=== PATIENT | female | born 1995 | race American Indian/Alaskan Native ===

== ENCOUNTER 2017-05-09 20:23 | Emergency (ER) | payer MEDICAID ==
[2017-05-09 20:46] VITALS: BP 111/71
[2017-05-09 21:09] LABS: Basophils % (Auto) 0.3 % (0.0-1.8); Eosinophils % (Auto) 0.2 % (0.0-4.3); Hemoglobin 12.7 gm/dl (10.1-14.3); Mean Corpuscular HGB Conc 34 % (30-34); Mean Corpuscular Hemoglobin 31 pg (28-32); Mean Corpuscular Volume 92 fl (79-97); Platelet Count 232 K/mm3 (140-440); Red Blood Count 4.12 M/mm3 (3.65-5.03); Red Cell Distribution Width 13.8 % (13.2-15.2); White Blood Count 10.8 K/mm3 (4.5-11.0)
[2017-05-09 21:28] LABS: Anion Gap 18 mmol/L; BUN/Creatinine Ratio 17; Blood Urea Nitrogen 12 mg/dL (7-17); Carbon Dioxide 23 mmol/L (22-30); Chloride 101.2 mmol/L (98-107); Glucose 89 mg/dL (65-100); Potassium 3.4 mmol/L (3.6-5.0); Sodium 139 mmol/L (137-145)
== END 2017-05-09 21:58 | disposition left against medical advice (07) ==
LOC: ED 20:23
DX: F41.9 Anxiety disorder, unspecified (principal); Z53.21 Procedure and treatment not carried out due to patient leaving prior to being seen by health care provider
CPT/HCPCS: 36415; 80048; 84703; 85025; G0480; 80320

== ENCOUNTER 2017-08-10 10:57 | Emergency (ER) | payer MEDICAID, OTHER ==
[2017-08-10 11:04] VITALS: BP 108/77
[2017-08-10 11:26] LABS: HCG Qualitative,Urine Negative (Negative)
[2017-08-10 11:29] LABS: Bilirubin,Urine NEG (Negative); Blood,Urine NEG (Negative); Color,Urine Yellow (Yellow); Mucus,Urine 2+ /HPF; Protein,Urine <15 mg/dL mg/dL (Negative)
--- NOTE | 2017-08-10 12:25 | Emergency Department Report ---
ED Female HPI - General Chief complaint: Urogenital-Female Stated complaint: VAG PAIN/DISCHARGE Time Seen by Provider: 08/10/17 12:07 Source: patient Mode of arrival: Ambulatory Limitations: No Limitations - History of Present Illness Initial comments: Patient is a 21-year-old [place]ian female who is presenting with vaginal discharge and lower abdominal discomfort past 2 weeks. Patient states that her partner who she has had a protected sex with was diagnosed with Trichomonas. Patient states that she has slight discomfort when she urinates. Patient states she has a heavy amount of yellowish discharge. As well as odor. Patient denies any nausea vomiting diarrhea fevers at this time. MD Complaint: vaginal discharge, pelvic pain -: week(s) (2) - Related Data Home Medications Medication Instructions Recorded Confirmed Last Taken Vit,Calc76/Iron/Folic 02/28/14 02/28/14 Unknown [Prenatabs Rx Tablet] Allergies Allergy/AdvReac Type Severity Reaction Status Date / Time No Known Allergies Allergy Verified 05/09/17 20:42 ED Review of Systems ROS: Stated complaint: VAG PAIN/DISCHARGE Other details as noted in HPI Comment: All other systems reviewed and negative ED Past Medical Hx - Past Medical History Hx Hypertension: No Hx Congestive Heart Failure: No Hx Diabetes: No Hx Deep Vein Thrombosis: No Hx Renal Disease: No Hx Sickle Cell Disease: No Hx Seizures: No Hx Psychiatric Treatment: Yes Hx Asthma: No Hx COPD: No Hx HIV: No - Social History Smoking Status: Never Smoker Substance Use Type: None - Medications Home Medications: Home Medications Medication Instructions Recorded Confirmed Last Taken Type Vit,Calc76/Iron/Folic 02/28/14 02/28/14 Unknown History [Prenatabs Rx Tablet] ED Physical Exam - General Limitations: No Limitations General appearance: alert, in no apparent distress - Head Head exam: Present: atraumatic, normocephalic - Eye Eye exam: Present: normal appearance - ENT ENT exam: Present: mucous membranes moist - Neck Neck exam: Present: normal inspection - Respiratory Respiratory exam: Present: normal lung sounds bilaterally. Absent: respiratory distress - Cardiovascular Cardiovascular Exam: Present: regular rate, normal rhythm. Absent: systolic murmur, diastolic murmur, rubs, gallop - GI/Abdominal GI/Abdominal exam: Present: soft, normal bowel sounds - Rectal Rectal exam: Present: deferred - External exam: Present: other (patient is deferred a pelvic exam at this time) - Extremities Exam Extremities exam: Present: normal inspection - Back Exam Back exam: Present: normal inspection - Neurological Exam Neurological exam: Present: alert, oriented X3 - Psychiatric Psychiatric exam: Present: normal affect, normal mood - Skin Skin exam: Present: warm, dry, intact, normal color. Absent: rash ED Course Vital Signs 08/10/17 11:00 Temperature 98.5 F Pulse Rate 82 Respiratory 16 Rate Blood Pressure 108/77 O2 Sat by Pulse 100 Oximetry ED Medical Decision Making - Medical Decision Making Patient will be empirically treated for STDs here in the emergency department. Patient has deferred a pelvic exam at this time. Critical care attestation.: If time is entered above; I have spent that time in minutes in the direct care of this critically ill patient, excluding procedure time. ED Disposition Clinical Impression: Cervicitis Disposition: DC-01 TO HOME OR SELFCARE Is pt being admited?: No Does the pt Need Aspirin: No Condition: Stable Instructions: Cervicitis (ED) Referrals: PRIMARY CARE, [Primary Care Provider] - 3-5 Days Forms: STI Treatment and Prevention
[2017-08-10] MEDS ORDERED: ROCEPHIN IM ONE (12:26)
[2017-08-10] MEDS ORDERED: XYLOCAINE 1% MPF 5 mL INFILTRATI ONE (12:26)
[2017-08-10] MEDS ORDERED: FLAGYL PO ONE (12:26)
[2017-08-10] MEDS ORDERED: ZITHROMAX PO ONE (12:26)
== END 2017-08-10 12:50 | disposition home or self-care (01) ==
LOC: ED 10:57
DX: N72 Inflammatory disease of cervix uteri (principal)
CPT/HCPCS: 81001; 81025; 96372; 99283; J0696

== ENCOUNTER 2018-12-17 15:59 | Emergency (ER) | payer MEDICAID, OTHER ==
--- NOTE | 2018-12-17 16:22 | Event Note ---
Date: 12/17/18 23 y.o aaf presents to ER with suprapubic discomfort, white cottage cheese vaginal discharge, accompanied by swollen vaginal hairbump. Had unprotected sex and is worried about an STD. The initial assessment/diagnostic orders/clinical plan/treatment(s) is/are subject to change based on patient's health status,clinical progression and re-a ssessment by fellow clinical providers in the ED. Further treatment and workup at subsequent clinical providers discretion. Patient/guardian urged not to elope from the ED as their condition may be serious if not clinically assessed and managed.
[2018-12-17 16:53] LABS: Bilirubin,Urine NEG (Negative); Blood,Urine NEG (Negative); Color,Urine Yellow (Yellow); Mucus,Urine FEW /HPF; Protein,Urine <15 mg/dL mg/dL (Negative); Urobilinogen,Urine < 2.0 mg/dL (<2.0)
[2018-12-17 16:56] LABS: HCG Qualitative,Urine Negative (Negative)
--- NOTE | 2018-12-17 17:18 | Emergency Department Report ---
ED Female HPI - General Chief complaint: Abdominal Pain Stated complaint: PELVIC PAIN/STD CHECK Time Seen by Provider: 12/17/18 16:41 Source: patient Mode of arrival: Ambulatory Limitations: Other - History of Present Illness Initial comments: This is a 23 year-old female who presents to the emergency room with pelvic pain and vaginal discharge for 2 weeks. Patient reports accompany external vaginal pruritus. Her last menstrual period was 11/23/2018. He shouldn't have not taken anything for symptomatic relief. She denies urinary frequency, urgency, dysuria, nausea, vomiting, or back pain. MD Complaint: vaginal discharge, possible STD Onset/Timin -: week(s) Location: labia, suprapubic Radiation: non-radiating Severity: moderate Severity scale (0 -10): 4 Quality: cramping Consistency: intermittent Improves with: none Worsens with: none Are you Now?: No Last Menstrual Period: 11/23/18 EDC: 08/30/19 Associated Symptoms: vaginal discharge. denies: vaginal bleeding, abdominal pain, nausea/vomiting, fever/chills, dysuria, hematuria, rash, seizure - Related Data Sexually active: Yes Home Medications Medication Instructions Recorded Confirmed Last Taken Vit,Calc76/Iron/Folic 02/28/14 02/28/14 Unknown [Prenatabs Rx Tablet] Previous Rx's Medication Instructions Recorded Last Taken Type metroNIDAZOLE [Flagyl TAB] 500 mg PO Q12HR #14 tab 12/17/18 Unknown Rx Allergies Allergy/AdvReac Type Severity Reaction Status Date / Time No Known Allergies Allergy Verified 12/17/18 16:20 ED Review of Systems ROS: Stated complaint: PELVIC PAIN/STD CHECK Other details as noted in HPI Constitutional: denies: chills, fever Respiratory: denies: cough, shortness of breath, wheezing Cardiovascular: denies: chest pain, palpitations Gastrointestinal: abdominal pain. denies: nausea, diarrhea Genitourinary: discharge. denies: urgency, dysuria Musculoskeletal: denies: back pain, joint swelling, arthralgia Neurological: denies: headache, weakness, paresthesias Psychiatric: denies: anxiety, depression ED Past Medical Hx - Past Medical History Previous Medical History?: Yes Hx Hypertension: No Hx Congestive Heart Failure: No Hx Diabetes: No Hx Deep Vein Thrombosis: No Hx Renal Disease: No Hx Sickle Cell Disease: No Hx Seizures: No Hx Psychiatric Treatment: Yes Hx Asthma: No Hx COPD: No Hx HIV: No - Surgical History Past Surgical History?: No - Social History Smoking Status: Never Smoker Substance Use Type: None - Medications Home Medications: Home Medications Medication Instructions Recorded Confirmed Last Taken Type Vit,Calc76/Iron/Folic 02/28/14 02/28/14 Unknown History [Prenatabs Rx Tablet] metroNIDAZOLE [Flagyl TAB] 500 mg PO Q12HR #14 tab 12/17/18 Unknown Rx ED Physical Exam - General Limitations: Other General appearance: alert, in no apparent distress - Respiratory Respiratory exam: Present: normal lung sounds bilaterally. Absent: respiratory distress - Cardiovascular Cardiovascular Exam: Present: regular rate, normal rhythm. Absent: systolic murmur, diastolic murmur, rubs, gallop - GI/Abdominal GI/Abdominal exam: Present: soft, normal bowel sounds. Absent: distended, tenderness, guarding, rebound, rigid, organomegaly - External exam: Present: normal external exam Speculum exam: Present: vaginal discharge (malodorous yellowish white frothy discharge). Absent: cervical discharge, vaginal bleeding, foreign body, tissue, laceration Bi-manual exam: Present: normal bi-manual exam - Back Exam Back exam: Absent: CVA tenderness (R), CVA tenderness (L) - Neurological Exam Neurological exam: Present: alert, oriented X3 - Psychiatric Psychiatric exam: Present: normal affect, normal mood - Skin Skin exam: Present: warm, dry, intact, normal color. Absent: rash ED Course Vital Signs 12/17/18 16:18 Temperature 98.6 F Pulse Rate 87 Respiratory 13 Rate Blood Pressure 113/46 O2 Sat by Pulse 100 Oximetry ED Medical Decision Making - Lab Data Lab Results 12/17/18 Range/Units 16:37 Urine Color Yellow (Yellow) Urine Turbidity Clear (Clear) Urine pH 7.0 (5.0-7.0) Ur Specific [place] 1.016 (1.003-1.030) Urine Protein <15 mg/dl (Negative) mg/dL Urine Glucose (UA) Neg (Negative) mg/dL Urine Ketones Neg (Negative) mg/dL Urine Blood Neg (Negative) Urine Nitrite Neg (Negative) Urine Bilirubin Neg (Negative) Urine Urobilinogen < 2.0 (<2.0) mg/dL Ur Leukocyte Esterase Tr (Negative) Urine WBC (Auto) 2.0 (0.0-6.0) /HPF Urine RBC (Auto) 2.0 (0.0-6.0) /HPF U Epithel Cells (Auto) 6.0 (0-13.0) /HPF Urine Mucus Few /HPF Urine HCG, Qual Negative (Negative) - Medical Decision Making Patient was examined by me. Vitals are stable and in no acute distress. During pelvic exam patient reports her boyfriend was caught cheating on her ankle signed a possible STD exposure. Obtain wet prep, gonorrhea and chlamydia, urinalysis, and test. Urinalysis and test is unremarkable. Wet prep positive for clue cells and poly cells. Negative yeast and Trichomonas. Empirically treated with Rocephin 250 mg IM and azithromycin 1 g by mouth. Start metronidazole for bacterial vaginitis. Discharged home in stable condition. Discussed prevention options. F/U with PCP or Health Department. Critical care attestation.: If time is entered above; I have spent that time in minutes in the direct care of this critically ill patient, excluding procedure time. ED Disposition Clinical Impression: Vaginal discharge, Pelvic pain, Exposure to STD, Acute vaginitis Disposition: DC-01 TO HOME OR SELFCARE Is pt being admited?: No Does the pt Need Aspirin: No Condition: Stable Instructions: Abdominal Pain (ED), Safe Sex (ED), Sexually Transmitted Diseases (ED) Additional Instructions: Complete full course of antibiotics as prescribed. Avoid drinking alcohol while taking antibiotics. Prescriptions: metroNIDAZOLE [Flagyl TAB] 500 mg PO Q12HR #14 tab Referrals: IVETTE PEREZ MD [Primary Care Provider] - 3-5 Days [facility] [Provider Group] - 3-5 Days [facility] [Provider Group] - 3-5 Days [facility] [Provider Group] - 3-5 Days Forms: Work/School Release Form(ED) Time of Disposition: 18:47
[2018-12-17] MEDS ORDERED: ROCEPHIN IM ONE (18:48)
[2018-12-17] MEDS ORDERED: XYLOCAINE 1% MPF 5 mL INFILTRATI ONE (18:48)
[2018-12-17] MEDS ORDERED: ZITHROMAX PO ONE (18:48)
[2018-12-17 19:23] VITALS: BP 122/80
== END 2018-12-17 19:23 | disposition home or self-care (01) ==
LOC: ED 15:59
DX: N76.0 Acute vaginitis (principal); Z20.2 Contact with and (suspected) exposure to infections with a predominantly sexual mode of transmission
CPT/HCPCS: 81001; 81025; 87210; 87591; 96372; 99284; J0696

== ENCOUNTER 2020-02-09 19:16 | Outpatient (CLI) | payer MEDICAID ==
[2020-02-09 20:15] VITALS: BP 106/59
== END 2020-02-09 20:45 | disposition left against medical advice (07) ==
LOC: TRG 19:16 → APU 19:42 → TRG 20:45
PROVIDERS: ATTEND Obstetrics & Gynecology
DX: O47.03 False labor before 37 completed weeks of gestation, third trimester (principal); Z3A.34 34 weeks gestation of pregnancy
CPT/HCPCS: 59025

== ENCOUNTER 2020-02-27 10:35 | Outpatient (CLI) | payer MEDICAID ==
[2020-02-27 12:06] VITALS: BP 106/65
[2020-02-27] MEDS ORDERED: ACETAMINOPHEN 500 MG TAB PO ONE (12:20)
--- NOTE | 2020-02-27 12:58 | Event Note ---
Date: 02/27/20 (r/o SROM) Pt is 24 y.o. @ 36.6, limited [facility], here for r/o SROM. States that she thinks her water broke this AM at 0730. . It was clear fluid and has been running down her leg since then. Per the triage nurse, pt was nitrazine positive. A speculum exam was performed, no pooling noted. When questioned further, pt states that she had sexual intercourse last night. Explained that sexual activity can cause nitrazine test to turn positive. Cervical exam /-3. Category 1 monitor strip. Contractions q 2-4 minutes apart. Will order an ultrasound for ALBERTO and BPP. Also ordered IV fluids and Extra Strength Tylenol for pain. Will re- evaluate cervical exam, pain, and monitor strip in 2 hours and develop a plan after re-evaluation. Discussed this with patient and she verbalized understanding.
[2020-02-27] MEDS ORDERED: LACTATED RINGERS 1,000 ML IV SCH (13:00)
--- NOTE | 2020-02-27 16:42 | Event Note ---
Date: 02/27/20 (Pt feeling better) Pt is feeling a little better. Still having some irregular ctxs. Cervical exam unchanged. Pt given strict labor precautions. Also discussed importance of care and need for follow up this week in the office. Pt verbalized understanding of these instructions. She was discharged home in good condition , not in labor, and no SROM. monitor strip remained category 1 throughout triage visit.
--- NOTE | 2020-02-27 17:37 | Ultrasound Report ---
US OB BPP wo non-stress, US OB limited INDICATION / CLINICAL INFORMATION: well being. COMPARISON: None available. FINDINGS: A single live fetus is seen in cephalic presentation. heart rate is 142. ALBERTO is normal at 10.4. BPP is 8/8 IMPRESSION: Single live fetus in cephalic presentation with heart rate 142 and normal ALBERTO. BPP is 8/8 Signer Name: Michael Thornton MD FACR Signed: 02/27/2020 5:33 PM Workstation Name: [id number]
== END 2020-02-27 17:03 | disposition home or self-care (01) ==
LOC: TRG 10:35 → APU 10:37 → LD 11:48 → TRG 17:03
PROVIDERS: ATTEND Obstetrics & Gynecology
DX: O42.913 Preterm premature rupture of membranes, unspecified as to length of time between rupture and onset of labor, third trimester (principal); Z3A.36 36 weeks gestation of pregnancy
CPT/HCPCS: 76815; 76819; J7120

== ENCOUNTER 2020-03-04 12:18 | Outpatient (CLI) | payer MEDICAID ==
[2020-03-04 13:50] VITALS: BP 108/64
== END 2020-03-04 14:09 | disposition home or self-care (01) ==
LOC: TRG 12:18 → APU 12:18 → TRG 14:09
PROVIDERS: ATTEND Obstetrics & Gynecology
DX: O47.1 False labor at or after 37 completed weeks of gestation (principal); Z3A.37 37 weeks gestation of pregnancy
CPT/HCPCS: 59025

== ENCOUNTER 2020-03-10 06:11 | Inpatient (IN) | payer MEDICAID ==
[2020-03-10] MEDS ORDERED: LIDOCAINE (2%) 20 MG/1 ML VIAL 20 ML MDV INFILTRATI NR (07:10)
[2020-03-10] MEDS ORDERED: ePHEDrine SULFATE 50 MG/1 ML INJ IV PRN (07:10)
[2020-03-10] MEDS ORDERED: AMPICILLIN/NS 2 GM/100 ML 2 GM/100 ML BAG IV ONE (07:10)
[2020-03-10] MEDS ORDERED: TERBUTALINE 1 MG/1 ML INJ SUB-Q PRN (07:10)
[2020-03-10] MEDS ORDERED: NalbUPHINE 10 MG/1 ML INJ IV PRN ×2 (07:10→10:00)
--- NOTE | 2020-03-10 07:17 | History and Physical Report ---
History of Present Illness Date of examination: 03/10/20 Chief complaint: SROM around 0600, contractions History of present illness: EDC Confirmation: 03/20/2020 Past History : 5 Term Births: 2 Premature Births: 0 Living Children: 2 Para: 2 Mult. Births: 0 Prev : 0 Prev. attempt? 0 Aborta: 2 Elect. Ab: 2 Spont. Ab: 0 Ectopics: 0 # 1 Delivery date: 2012 Delivery type: EAB Infant Sex: - # 2 Delivery date: 10/13/2014 Weeks Gestation: 39 labor: no Delivery type: Hours of labor: 26 Anesthesia type: epidural Delivery location: [place] Infant Sex: Female weight: 8-1 Name: Dutch John # 3 Delivery date: 04/24/2016 Weeks Gestation: 39 Delivery type: Vaginal Anesthesia type: epidural Delivery location: [facility] Sex: female weight: 6.56 Name: Lise Comments: none # 4 Delivery date: 01/2019 Delivery type: EAB Risk Factors: Smoked Tobacco Use: Never smoker Smokeless Tobacco Use: Never Passive smoke exposure: no Drug use: no HIV high-risk behavior: no Caffeine use: 0 drinks per day Alcohol use: no Exercise: yes Times per week: 3 Type of Exercise: walking Seatbelt use: 100 % Past Medical History: Reviewed history from 11/14/2015 and no changes required: Pyleonephritis Past Surgical History: Reviewed history from 11/14/2015 and no changes required: EAB D&C: (2012 & 2018) Past Medical History 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 Infection History Hx of STD: chlamydia HIV Risk Eval: no Hepatitis B Risk Eval: low risk Personal hx. of genital herpes: no Partner hx. of genital herpes: no Rash, Viral, or Febrile illness since last LMP? no Varicella/Chicken Pox Status: Immunized Genetic History Congenital Heart Defect: Mom: no Dad: no Dena Disease: Mom: no Dad: no Thalassemia Mom: no Dad: no Neural Tube Defect Mom: no Dad: no Down's Syndrome Mom: no Dad: no Gene-Sachs Mom: no Dad: no Sickle Cell Disease/Trait Mom: no Dad: no Hemophilia Mom: no Dad: no Muscular Dystrophy Mom: no Dad: no Cystic Fibrosis Mom: no Dad: no Vita Chorea Mom: no Dad: no Mental Retardation Mom: no Dad: no Fragile X Mom: no Dad: no Other Genetic/Chromosomal Disorder Mom: no Dad: no Child w/other defect Mom: no Dad: no Comments/Counseling: Oldest daughter is autistic Enviromental Exposures Xray Exposure: no Medication, drug, or alcohol use since LMP: no Chemical/Other Exposure: no Exposure to Cat Liter: no Hx of Parvovirus (Fifth Disease): no Occupational Exposure to Children: none Active Medications (reviewed today): PLUS 27-1 MG ORAL TABLET ( VIT-FE FUMARATE-FA) 1 po Current Allergies (reviewed today): No known allergies Past History Past Medical History: other (see HPI) Past Surgical History: other (see HPI) 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 (treated during care), trichomonas (treated upon admission) - Obstetrical History Expected Date of Delivery: 03/20/20 Actual Gestation: 38 Week(s) 4 Day(s) : 5 Para: 2 Hx # Term Pregnancies: 2 Number of Pregnancies: 0 Spontaneous Abortions: 0 Induced : 2 Number of Living Children: 2 Medications and Allergies Allergies Allergy/AdvReac Type Severity Reaction Status Date / Time No Known Allergies Allergy Verified 12/17/18 16:20 Home Medications Medication Instructions Recorded Confirmed Last Taken Type Vit,Calc76/Iron/Folic 1 tab PO DAILY 02/28/14 02/27/20 03/09/20 09:00 History [Prenatabs Rx Tablet] Active Meds: Active Medications Ephedrine Sulfate (Ephedrine Sulfate) 10 mg IV Q2M PRN PRN Reason: Hypotension Oxytocin/Sodium Chloride (Pitocin/Ns 30 Unit/500ml) 30 units in 500 mls @ 2 mls/hr IV TITR WILMAN; Protocol Lactated Ringer's (Lactated Ringers) 1,000 mls @ 125 mls/hr IV DIRECT WILMAN Lidocaine (Xylocaine 2%) 20 ml INFILTRATI ONCE ONE Stop: 03/10/20 07:11 Mineral Oil (Mineral Oil) 30 ml PO QHS PRN PRN Reason: Constipation Terbutaline Sulfate (Brethine) 0.25 mg SUB-Q ONCE PRN PRN Reason: Hyperstimulation/Hypertonicity Review of Systems All systems: negative - Physical Exam Breasts: Positive: normal Cardiovascular: Regular rate Lungs: Positive: Normal air movement Abdomen: Positive: normal appearance, soft Genitourinary (Female): Positive: normal external genitalia, normal perenium Vulva: both: normal Vagina: Positive: normal moisture Anus/Rectum: Positive: normal perianal skin Extremities: Positive: normal - Obstetrical FHR: category 2 Uterine Contraction Monitor Mode: External Cervical Dilatation: 4.5 (per RN) Uterine Contraction Pattern: Regular Uterine Tone Measurement Phase: Contraction Uterine Contraction Intensity: Moderate Results Result Diagrams: 03/10/20 07:22 All other labs normal. Assessment and Plan 24y/o @ 38+4 weeks, admitted with SROM and labor. GBS +, trich + 03/01 with no evidence of treatment so treated upon admission. anticipate admission orders in EMR. - Patient Problems (1) 38 weeks gestation of Current Visit: Yes Status: Acute (2) GBS (group B Streptococcus carrier), +RV culture, currently Current Visit: Yes Status: Acute Plan to address problem: Ampicillin q4hrs until delivery (3) Active labor at term Current Visit: No Status: Acute
[2020-03-10] MEDS ORDERED: ONDANSETRON 4 MG/2 ML INJ IV PRN ×3 (07:30→15:39)
[2020-03-10] MEDS ORDERED: fentaNYL 100 MCG/2 ML INJ IV PRN (07:30)
[2020-03-10 07:55] LABS: Basophils % (Auto) 0.3 % (0.0-1.8); Eosinophils # (Auto) 0.1 K/mm3 (0.0-0.4); Eosinophils % (Auto) 0.6 % (0.0-4.3); Hematocrit 30.3 % (30.3-42.9); Hemoglobin 10.3 gm/dl (10.1-14.3); Lymphocytes # (Auto) 2.1 K/mm3 (1.2-5.4); Lymphocytes % (Auto) 20.9 % (13.4-35.0); Mean Corpuscular HGB Conc 34 % (30-34); Mean Corpuscular Volume 91 fl (79-97); Monocytes # (Auto) 0.7 K/mm3 (0.0-0.8); Monocytes % (Auto) 6.6 % (0.0-7.3); Platelet Count 183 K/mm3 (140-440); Red Blood Count 3.33 M/mm3 (3.65-5.03); Red Cell Distribution Width 14.2 % (13.2-15.2)
[2020-03-10] MEDS ORDERED: metroNIDAZOLE 500 MG TAB PO NR (08:00)
[2020-03-10] MEDS ORDERED: LACTATED RINGERS 1,000 ML IV SCH (08:00)
[2020-03-10] MEDS ORDERED: OXYTOCIN DRIP 30 UNITS/500 ML BAG IV SCH ×2 (08:00)
[2020-03-10] MEDS ORDERED: DEXMEDETOMIDINE 200 MCG/2 ML VIAL IV ONE (09:10)
--- NOTE | 2020-03-10 09:39 | Anesthesia Consultation ---
Anesthesia Consult and Med Hx Date of service: 03/10/20 - Airway Anesthetic Teeth Evaluation: Good ROM Head & Neck: Adequate Mental/Hyoid Distance: Adequate Mallampati Class: Class II Intubation Access Assessment: Good - Pulmonary Exam CTA: Yes - Cardiac Exam Cardiac Exam: RRR - Pre-Operative Health Status ASA Pre-Surgery Classification: ASA2 Proposed Anesthetic Plan: Epidural - Pulmonary Hx Smoking: No Hx Asthma: No COPD: No Hx Pneumonia: No Hx Sleep Apnea: No - Cardiovascular System Hx Hypertension: No - Central Nervous System Hx Seizures: No Hx Psychiatric Problems: No - Gastrointestinal Hx Gastroesophageal Reflux Disease: No - Endocrine Hx Renal Disease: No Hx End Stage Renal Disease: No Hx Hypothyroidism: No Hx Hyperthyroidism: No - Hematic Hx Anemia: No Hx Sickle Cell Disease: No - Other Systems Hx Alcohol Use: No Hx Substance Use: Yes (marijuana prior to LMP)
--- NOTE | 2020-03-10 09:40 | Progress Note ---
Labor Epidural - Labor Epidural Start Time: 09:15 Stop Time: 09:30 Performed by:: ZIA BRANDON ([facility]) Procedure: Patient is requesting a laboring epidural for laboring pain. Patient IDed, H&P reviewed, all questions and concerns were answered, and consent was signed. Timeout was performed at bedside. Patient in sitting position. Sterile prep and drape was performed. 3ml of 1% lidocaine skin wheal at L[3]- L [4]. 18- gauge Touhy epidural needle was advanced to loss of resistance with air technique. Negative CSF negative blood. Epidural catheter advanced to [12] centimeters. [-] Aspiration [-] test dose. Sterile dressing applied. Patient tolerated procedure.
[2020-03-10] MEDS ORDERED: NALOXONE 2 MG/2 ML INJ IV PRN (10:00)
[2020-03-10] MEDS ORDERED: fentaNYL-BUPIV 2 MCG/ML-0.125% 200 MCG/100 ML BAG EPIDURAL SCH (10:00)
[2020-03-10] MEDS ORDERED: diphenhydrAMINE 50 MG/ML VIAL IV PRN (10:00)
[2020-03-10] MEDS ORDERED: AMPICILLIN/NS 1 GM/50 ML 1 GM/50 ML BAG IV SCH (11:00)
--- NOTE | 2020-03-10 11:59 | Procedure Note ---
OB Delivery Note - Delivery Date of Delivery: 03/10/20 Dredging Inspector: JULIO JONAS (RISHI Ellis) Estimated blood loss: 200cc - Vaginal Delivery presentation: vertex Delivery position: OA Intrapartum events: none Delivery induction: none Delivery augmentation: pitocin Delivery monitor: external FHT, external uterine Route of delivery: Delivery placenta: spontaneous Delivery cord: 3 umbilical vessels Episiotomy: none Delivery laceration: none Anesthesia: epidural Delivery comments: of Live female delivered OA over a intact perineum. 6lbs8.3oz and APGARS 8/9no nuchal cord mouth bulb suctioned on mom's abdomen. Body delivered without difficulty. Cord clamp and cut after cessation. Cord blood obtain baby [id number]. Placenta delivered spontaneously and Intact. Pitocin IVFs Firm fundus, minimal bleeding. Placenta appears intact with a 3 vessel cord. Perineum and vagina inspected intact. EBL 200cc. Hemostasis. Patient tolerated well, no complications during . Mom and baby stable and recovering in LDR RISHI Ellis - B at 1 minute: 8 at 5 minutes: 9 Gender: Female (6lbs 8.3 oz Jen)
[2020-03-10] MEDS: IBUPROFEN 800 MG TAB PO PRN (15:05)
[2020-03-10] MEDS ORDERED: diphenhydrAMINE 25 MG CAP PO PRN (15:39)
[2020-03-10] MEDS ORDERED: BENZOCAINE/MENTHOL 20/0.5% TOP SPRAY 56 GM TP PRN (15:39)
[2020-03-10] MEDS ORDERED: WITCH HAZEL/ GLYCERIN PAD TP PRN (15:39)
[2020-03-10] MEDS ORDERED: LANOLIN/ZINC/DIMETHICONE (LANSINOH) 7 GM TP PRN (15:39)
[2020-03-10] MEDS ORDERED: PROMETHAZINE 25 MG TAB PO PRN (15:39)
[2020-03-10] MEDS: IBUPROFEN 600 MG TAB PO SCH (16:54)
--- NOTE | 2020-03-10 17:34 | Post Anesthesia Evaluation ---
- Post Anesthesia Evaluation Patient Participated: Yes Airway Patent: Yes Stable Respiratory Function: Yes Nausea/Vomiting: No Temp > 96.8F: Yes Pain Manageable: Yes Adequeate Hydration: Yes Anesthesia Complications: No Block Receding Appropriately: Yes Patient on Ventilator: No
[2020-03-10] MEDS ORDERED: ACETAMINOPHEN 500 MG TAB PO PRN (21:48)
[2020-03-10] MEDS ORDERED: MAGNESIUM HYDROXIDE (MOM) ORAL LIQD UDC PO PRN (22:00)
[2020-03-10] MEDS ORDERED: MINERAL OIL 30 ML ORAL LIQD PO PRN (22:00)
[2020-03-11] MEDS: FERROUS SULFATE 325 MG TAB PO SCH ×2 (00:21→10:58)
[2020-03-11] MEDS: IBUPROFEN 800 MG TAB PO PRN (00:21)
[2020-03-11] MEDS: DOCUSATE SODIUM 100 MG CAP PO SCH ×2 (00:21→10:58)
[2020-03-11 00:23] LABS: Hematocrit 29.9 % (30.3-42.9)
--- NOTE | 2020-03-11 06:28 | Discharge Summary ---
Providers - Providers Date of Admission: 03/10/20 07:17 Date of discharge: 03/11/20 (pt desires d/c) Attending physician: CRISS SPARROW 03/11/20 19:24 psychiatry consult [Consult to Mental Health] [CONS] Routine Reason For Exam: depression Primary care physician: CRISS SPARROW Hospitalization Reason for admission: active labor, rupture of membranes, IUP at term Delivery: Episiotomy: none Laceration: none, 1st degree Other procedures: none complications: other (This was conveyed to me after d/c was started. Pt is taking Celexa but [facility] did not RX this medication. Will hold d/c until consult is completed) Discharge diagnosis: IUP at term delivered baby: female Hospital course: uncomplicated vaginal delivery Pt sleeping desires d/c DEPO for BC then tubal ligation VSS FF below umb Lochia small Perineum intact H&H 03/21 stable Doing well s/p vag delivery P: d/c tomorrow after consult is completed Will hold d/c until tomorrow so patient can be evaluated by . Pt agress to this and states she has not taken Celexa in over a year. Condition at discharge: Good Disposition: DC-01 TO HOME OR SELFCARE - Discharge Diagnoses (1) Vaginal delivery Status: Acute Comment: RTO 4 weeks PP care Plan - Provider Discharge Summary Activity: routine, no sex for 6 weeks, no heavy lifting 4 weeks, no strenuous exercise Diet: routine Instructions: routine Additional instructions: [] Smoking cessation referral if applicable(refer to patient education folder for contact #) [] Refer to [facility] Booklet Call your doctor immediately for: * Fever > 100.5 * Heavy vaginal bleeding ( >1 pad per hour) * Severe persistent headache * Shortness of breath * Reddened, hot, painful area to leg or breast * Drainage or odor from incision. * Keep incision clean and dry at all times and follow doctor's instructions regarding bathing/showering - Follow up plan Follow up: CRISS SPARROW MD [Primary Care Provider] - 04/09/20 (Call [phone] to schedule your visit in 4 weeks. Take motrin/ibuprophen for cramping/pain. Call with concerns)
[2020-03-11] MEDS ORDERED: medroxyPROGESTERone ACETATE 150 MG/ML SYRINGE IM ONE (07:00)
[2020-03-11] MEDS: IBUPROFEN 600 MG TAB PO SCH (09:32)
[2020-03-11] MEDS ORDERED: PRENATAL VIT27-FE FUMARATE-FOLIC ACID VIT TAB PO SCH (10:00)
[2020-03-11] MEDS ORDERED: DIPHtheria,PERTUSSIS(ACELL),TETANUS VACCINE/PF 0.5 ML VIAL IM ONE (11:49)
--- NOTE | 2020-03-11 11:50 | Consultation ---
History of Present Illness - Reason for Consult Consult date: 03/11/20 Reason for consult: MHE Requesting physician: JULIO JONAS - Chief Complaint Chief complaint: SROM around 0600, contractions - History of Present Psychiatric Illness PSYCH HPI Patient is a 24-year-old currently single unemployed currently receiving benefits -[place] female with past psychiatric history of depression and no significant past medical history who was admitted to the [employer] service for [facility] with recommendation to be evaluated for mental health screening due to history of depression and currently taking medication with intention to continue to lactate. Patient endorses a history of depression in the past, currently she denies any acute depression reports she has not been taking medication for at least a year she feels just fine, usually go for outpatient counseling services but has been going anymore since there was no need. Patient denies any acute concerns, says she feels fine sleeping well denies any suicidal homicidal thoughts within the last 3 months prior to delivery of baby. PAST PSYCHIATRIC HISTORY Diagnoses: Depression Suicide attempts or Self-harm behavior: Denies Prior psychiatric hospitalizations: Reported none Substance Abuse history: Denied Previous psychiatric medications tried: Yes but discontinued Outpatient treatment: Yes discontinue PAST MEDICAL HISTORY: None reported Family Psychiatric History: None reported or documented SOCIAL HISTORY Marital Status: Single with children Living Arrangements: With self Employment Status: Currently unemployed Access to guns/weapons: None reported Education: 12th grade History of Abuse: None reported Legal History: None reported REVIEW OF SYSTEMS Constitutional: Negative for weight loss ENT: Negative for stridor Respiratory: Negative for cough or hemoptysis All other systems reviewed and are negative MENTAL STATUS EXAMINATION General Appearance and Behavior: Age appropriate, good hygiene, wearing appropriate clothes, lying in bed, goodeye contact, cooperative polite with questioning. Cooperation: Participating/engaged, Psychomotor Behavior: unremarkable and within normal limits Mood: Good Affect and affective range: congruent with mood Thought Process: Fluent/Logical Thought Content: Within reality Speech: Normal volume, Regular rate and rhythm Intellectual Functioning: Average Suicidal Ideation: Denies SI Homicidal Ideation: Denies HI Impulse Control: Unimpaired Insight and Judgment: Normal insight and judgment Memory: Normal Attention: Normal Orientation: Alert, oriented Assessment and Plan - Psychiatric problem (1) Encounter for medication management Current Visit: Yes Status: Acute (2) History of depression Current Visit: Yes Status: Acute Treatment Plan Do not recommend any medication at this time, patient reports she has been without her medication for over a year and has been doing fine if there is any further indication for pressure management patient can follow-up with outpatient counseling services MEDICATIONS: Risks, benefits and alternatives of medications discussed with the patient, questions answered and consent obtained from patient. PSYCHOTHERAPY: Supportive psychotherapy provided MEDICAL: Per primary team DELIRIUM PRECAUTIONS: Please re-orient patient frequently, keep lights on during the day, and minimize benzodiazepines and opiates as these medications could worsen patient's confusion. NUTRIENT MANAGEMENT SPECIALIST: DISPOSITION: Do Not Recommend acute inpatient psychiatric hospitalization at this time LEGAL STATUS: 1013 rescinded FOLLOW-UP: Will sign off Thank you for the consult. Please contact with any questions and/or concerns. Medications and Allergies Allergies Allergy/AdvReac Type Severity Reaction Status Date / Time No Known Allergies Allergy Verified 12/17/18 16:20 Home Medications Medication Instructions Recorded Confirmed Last Taken Type Vit,Calc76/Iron/Folic 1 tab PO DAILY 02/28/14 03/10/20 03/09/20 09:00 History [Prenatabs Rx Tablet] Active Meds: Active Medications Acetaminophen (Tylenol) 1,000 mg PO Q6H PRN PRN Reason: Pain, Mild (1-3) Benzocaine/Menthol (Dermoplast) 1 spray TP PRN PRN PRN Reason: Episiotomy Pain Bisacodyl (Dulcolax) 10 mg UT BID PRN PRN Reason: Constipation Diphenhydramine HCl (Benadryl) 25 mg PO Q6H PRN PRN Reason: Itching Diphtheria/Tetanus/Acell Pertussis (Adacel) 0.5 ml IM .ONCE ONE Stop: 03/11/20 11:50 Docusate Sodium (Colace) 100 mg PO BID [facility] Last Admin: 03/11/20 10:58 Dose: 100 mg Documented by: Ferrous Sulfate (Feosol) 325 mg PO BID [facility] Last Admin: 03/11/20 10:58 Dose: 325 mg Documented by: Ibuprofen (Ibuprofen) 800 mg PO Q8H PRN PRN Reason: Pain, Mild (1-3) Last Admin: 03/11/20 00:21 Dose: 800 mg Documented by: Ibuprofen (Ibuprofen) 800 mg PO Q6H [facility] Last Admin: 03/11/20 09:32 Dose: 800 mg Documented by: Magnesium Hydroxide (Milk Of Magnesia) 30 ml PO HS PRN PRN Reason: Constipation Multivitamins/Iron/Calcium ( Vitamin) 1 each PO QDAY WILMAN Last Admin: 03/11/20 10:58 Dose: 1 each Documented by: Ondansetron HCl (Zofran) 4 mg IV Q8H PRN PRN Reason: Nausea And Vomiting Promethazine HCl (Phenergan) 25 mg PO Q6H PRN PRN Reason: Nausea And Vomiting Witch Kimberly/Glycerin (Tucks Pad) 1 each TP PRN PRN PRN Reason: Hemorrhoid/cleansing/soothing Mental Status Exam - Vital signs Last Vital Signs Temp 98.1 F 03/11/20 07:44 Pulse 77 03/11/20 07:44 Resp 18 03/11/20 07:44 BP 103/72 03/11/20 07:44 Pulse Ox 100 03/11/20 07:44 Results Result Diagrams: 03/10/20 23:48 Abnormal lab results 03/10/20 Range/Units 23:48 Hgb 10.0 L (10.1-14.3) gm/dl Hct 29.9 L (30.3-42.9) % All other labs normal. Assessment and Plan - Psychiatric problem (1) Encounter for medication management Current Visit: Yes Status: Acute (2) History of depression Current Visit: Yes Status: Acute
[2020-03-11 16:17] VITALS: BP 112/70
== END 2020-03-11 16:56 | disposition home or self-care (01) | DRG 775 ==
LOC: TRG 06:11 → APU 06:12 → TRG 07:16 → LD 07:17 → OB 15:37
PROVIDERS: ADMIT Obstetrics & Gynecology; ATTEND Obstetrics & Gynecology
PROC: 10E0XZZ Delivery of Products of Conception, External Approach (ICD-10-PCS; principal; 2020-03-10)
PROC: 0HQ9XZZ Repair Perineum Skin, External Approach (ICD-10-PCS; 2020-03-10)
PROC: 3E0R3BZ Introduction of Anesthetic Agent into Spinal Canal, Percutaneous Approach (ICD-10-PCS; 2020-03-10)
PROC: 00HU33Z Insertion of Infusion Device into Spinal Canal, Percutaneous Approach (ICD-10-PCS; 2020-03-10)
PROC: 3E0234Z Introduction of Serum, Toxoid and Vaccine into Muscle, Percutaneous Approach (ICD-10-PCS; 2020-03-11)
DX: O99.824 Streptococcus B carrier state complicating childbirth (principal); Z37.0 Single live birth; Z3A.38 38 weeks gestation of pregnancy; Z20.828 Contact with and (suspected) exposure to other viral communicable diseases; O99.344 Other mental disorders complicating childbirth; F32.9 Major depressive disorder, single episode, unspecified; O70.0 First degree perineal laceration during delivery
CPT/HCPCS: 36415; 59025; 85014; 85018; 85025; 85027; 86592; 86850; 86900; 86901; 96360; 96361; 96365; G0378; J0290; J1050; J2590; J3010; J7120; U0003-CS